=== PATIENT | female | born 1990 | race Asian ===

== ENCOUNTER → 2024-12-10 13:52 | Outpatient (CLI) | payer OTHER, SELFPAY ==
[2024-12-10 20:24] LABS: Urine N gonorrhoeae NOT DETECTED
[2024-12-10 20:25] LABS: Urine Chlamydia NOT DETECTED
== END ==
PROVIDERS: Visit Provider Student in an Organized Health Care Education/Training Program
DX: Z11.3 Encounter for screening for infections with a predominantly sexual mode of transmission (principal)
CPT/HCPCS: 87491; 87591

== ENCOUNTER → 2024-12-27 09:31 | Outpatient (CLI) | payer OTHER, SELFPAY ==
[2024-12-27 10:30] LABS: Add Manual Diff / Slide Review NO; Hematocrit 34.7 % (36-46); Hemoglobin 11.7 g/dL (12.0-16.0); Lymphocytes Absolute Auto 1400 /uL (1100-4500); Mean Corpuscular HGB Conc 33.7 % (30-36); Mean Corpuscular Hemoglobin 30.8 PG (26-34); Mean Corpuscular Volume 91.2 fL (80-100); Platelet Count 286 X10^3/uL (150-400)
[2024-12-27 10:58] LABS: Natera Collection Specimen Collected
[2024-12-27 16:15] LABS: Hepatitis B Surface Antigen NEGATIVE s/c (NEGATIVE)
[2024-12-27 16:31] LABS: HIV 1 & 2 Ab/Ag 4th Gen Combo NEGATIVE (NEGATIVE); Hep C Virus Ab w/Reflex Quant NEGATIVE s/c (NEGATIVE)
== END ==
PROVIDERS: Visit Provider Student in an Organized Health Care Education/Training Program
DX: Z34.81 Encounter for supervision of other normal pregnancy, first trimester (principal)
CPT/HCPCS: 36415; 80055; 86787; 86803; 86850; 86900; 86901; 87086; 87389

== ENCOUNTER → 2025-04-02 15:03 | Outpatient (CLI) | payer OTHER, SELFPAY ==
[2025-04-02 16:28] LABS: Hematocrit 32.5 % (36-46); Hemoglobin 11.1 g/dL (12.0-16.0)
[2025-04-02 16:57] LABS: GTT (PREG) 1 Hour PP 50gm Dose 170 mg/dL (76-139)
== END ==
PROVIDERS: Referring Provider Student in an Organized Health Care Education/Training Program; Visit Provider Student in an Organized Health Care Education/Training Program
DX: Z13.0 Encounter for screening for diseases of the blood and blood-forming organs and certain disorders involving the immune mechanism (principal); Z13.1 Encounter for screening for diabetes mellitus
CPT/HCPCS: 36415; 82950; 85014; 85018

== ENCOUNTER → 2025-04-05 09:50 | Outpatient (CLI) | payer OTHER, SELFPAY ==
[2025-04-05 11:46] LABS: Glucose Fasting Gestational 77 mg/dL (76-95)
[2025-04-05 13:10] LABS: Glucose 2 Hour Gest 177 mg/dL (76-155)
[2025-04-05 13:12] LABS: Glucose 1 Hour Gest 182 mg/dL (76-180)
[2025-04-05 13:18] LABS: Glucose Tol Interp,Gestational INTERPRETATION
[2025-04-05 13:53] LABS: Glucose 3 Hour Gest 151 mg/dL (76-140)
== END ==
PROVIDERS: Referring Provider Student in an Organized Health Care Education/Training Program; Visit Provider Student in an Organized Health Care Education/Training Program
DX: O99.810 Abnormal glucose complicating pregnancy (principal)
CPT/HCPCS: 36415; 82951; 82952

== ENCOUNTER → 2025-04-18 13:52 | Outpatient (CLI) | payer OTHER, SELFPAY ==
--- NOTE | 2025-04-18 14:02 | DIAB.GDA ---
Initial Gestational Diabetes Assessment Name: Amber Florence Date: 04/18/25 Time: 2-3p Dx: Gestational Diabetes Provider: Hang RO: 07/11/24 Weeks: 28 Amber presents for initial GDM visit. Interested in CGM. Has not yet picked up SMBG supplies. Endorses FH of T2DM with father. Has questions today specifically on how GDM will impact baby and her risk of T2DM. 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 Diet Recall: 630am: 2 eggs, 1c rice, 1c milk 7-1p: 3 Skyflake packets 3p: chicken stew, 1.5c rice 9p: beef soup, 1c rice water Anthropometrics: Ht: 61 Wt: 125# Prepregnancy wt: 151# Physical Activity: Walks most days at work and at home on treadmill x 20 min Self-Monitoring Blood Glucose: None at this time. Will trial G7 Sample Date Pre Post Pre Post Pre Post HS Diabetes Medications: none Pertinent Labs: Screen: 170mg/dl OGTT: 77, 182, 177, 151 Nutrition Rx: Carbohydrates: Meal: 45-g lunch and dinner; 30g breakfast Snack: 15-30g Nutrition Diagnosis: Altered nutrition related lab value r/t GDM dx aeb recent OGTT Predicted excessive CHO intake r/t nutrition knowledge deficit and newly dx GDM aeb diet recall Self monitoring deficit r/t no SMBG supplies and interest in CGM aeb pt report Intervention: This participant was very receptive. Provided appropriate educational handouts. Discussed the following topics: GDM pathophysiology and impact of hyperglycemia on mom and baby Risk for T2DM for mom and baby in the future Ways to reduce risk T2DM Plate Method, meal timing, carb counting, pairing macronutrients and spreading out CHO for better BG management Blood glucose goals (FBG: <95 and 1 hour <140 mg/dL or 2 hour <120mg/dl); importance of checking 4x per day (FBG and pc) Impact of macronutrients on blood glucose Recommended servings for carbohydrates at meals and snacks Brainstormed appropriate meal plan based on her food preferences CGM placement, education, resources, and precautions Role of physical activity and following provider guidelines for safety 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
== END ==
LOC: DIET 13:53
PROVIDERS: Referring Provider Student in an Organized Health Care Education/Training Program
DX: O24.419 Gestational diabetes mellitus in pregnancy, unspecified control (principal); Z3A.28 28 weeks gestation of pregnancy; Z83.3 Family history of diabetes mellitus; Z71.3 Dietary counseling and surveillance
CPT/HCPCS: 97802

== ENCOUNTER → 2025-04-24 11:31 | Outpatient (CLI) | payer OTHER, SELFPAY ==
--- NOTE | 2025-04-24 11:33 | DIAB.GDFU ---
Follow-up Gestational Diabetes Assessment Name: Amber Florence Date: 04/24/25 Time: 1135-1150a Dx: Gestational Diabetes Provider: Hang RO: 07/11/24 Weeks: 28-29 Amber presents for GDM visit. Ordered Stelo because she wants to continue with CGM vs fingersticks. Unclear what her FBG are due to variability in CGM and no labels for FBG currently. Rice usually 1.5c. Very hungry at lunch time. having a hard time reducing rice portions. Open to moving milk and to increasing activity after meals. Has not yet picked up SMBG supplies. Diet Recall: 630am: 2 eggs, 1c rice, 1c milk OR two HB eggs 7-1p: 3 Skyflake packets--- not discussed 2-3p: chicken stew, 1.5c rice 9p: beef soup, 1-1.5c rice water Anthropometrics: Ht: 61 Wt: 151# 03/2025 Prepregnancy wt: 125# Physical Activity: Walks most days at work and at home on treadmill x 20 min Self-Monitoring Blood Glucose: Using CGM. Elevations usually after breakfast and dinner 140-191mg/dl, with most elevations 140-165mg/dl. TIR: 12% above 140mg/dl 87% 70-140mg/dl 1% <70mg/dl 0% <55mg/dl avmg/dl std dev: 25mg/dl variance: 22.2% Date Pre Post Pre Post Pre Post HS Diabetes Medications: none Pertinent Labs: Screen: 170mg/dl OGTT: 77, 182, 177, 151 Nutrition Rx: Carbohydrates: Meal: 45-g lunch and dinner; 30g breakfast Snack: 15-30g Nutrition Diagnosis: Altered nutrition related lab value r/t GDM dx aeb recent OGTT Predicted excessive CHO intake r/t nutrition knowledge deficit and newly dx GDM aeb diet recall - in progress Self monitoring deficit r/t no SMBG supplies and interest in CGM aeb pt report- improved Intervention: This participant was very receptive. Provided appropriate educational handouts. 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
== END ==
LOC: DIET 11:32
PROVIDERS: Referring Provider Obstetrics & Gynecology
DX: O24.419 Gestational diabetes mellitus in pregnancy, unspecified control (principal); Z3A.28 28 weeks gestation of pregnancy; Z71.3 Dietary counseling and surveillance
CPT/HCPCS: 97803

== ENCOUNTER → 2025-04-30 12:48 | Outpatient (CLI) | payer OTHER, SELFPAY ==
--- NOTE | 2025-04-30 12:49 | DI.US.S_ITS ---
PROCEDURE: US OB FOLLOW UP
== END ==
PROVIDERS: Referring Provider Obstetrics & Gynecology; Visit Provider Obstetrics & Gynecology
DX: O36.5930 Maternal care for other known or suspected poor fetal growth, third trimester, not applicable or unspecified (principal); Z3A.29 29 weeks gestation of pregnancy
CPT/HCPCS: 76816; 97803

== ENCOUNTER → 2025-04-30 12:49 | Outpatient (CLI) | payer OTHER, SELFPAY ==
--- NOTE | 2025-05-01 12:56 | DIAB.GDFU ---
Addendum entered by Felicia Lazaro 05/09/25 16:19: 05/09/25 phone call: Most FBG in goal, with a couple elevations in the 95-99mg/dl range. Many postprandial numbers just over 140mg/dl. Has not tried brown rice or quinoa. Eating >1c oats with sugar for breakfast. Encouraged switch to higher fiber grain at lunch and dinner and to reduce oats to 1c, d/c sugar, add a few berries and protein. She agreed. if Bg continue to be elevated, will reach out to OB for plan. RD f/u next week. Original Note: Follow-up Gestational Diabetes Assessment Name: Amber Florence Date: 04/30/25 Time: 2-235p Dx: Gestational Diabetes Provider: Hang RO: 07/11/24 Weeks: 29-30 Amber presents for GDM visit. Ordered Stelo because she wants to continue with CGM vs fingersticks. Started documenting FBG, which have improved over the last couple days, though postprandial numbers still elevated. She reports she does not always trust the CGM and wants to fingerstick to confirm. Had issues with receiving a glucose monitor that was being discontinued, so did not have supplies. Bought a CGM online instead. Has reduced rice portions to 2/3-3/4c per meal. Tearful today with continued elevations despite changes. Trying to add more protein. Has questions about medication management in . Diet Recall: 630am: 2-3 eggs, 2/3-3/4c rice 1140a; 2/3-3/4c rice with meat AM or PM snack: crackers or melon or lumpia x3 7pm: 2/3-3/4c rice , meat and +/- veg water Anthropometrics: Ht: 61 Wt: 151# 03/2025 Prepregnancy wt: 125# Physical Activity: Walking or dancing after lunch and dinner. Self-Monitoring Blood Glucose: Using CGM and noting meals. Numbers below are gleaned from FBG and highest, usually 1 hour, peak from CGM data. FBG have improved, though postprandial still elevated for most meals. Will try higher fiber complex CHO at meals to see if these numbers will come down. 4/7 elevated FBG, 5/6 elevated pc breakfast, 5/7 elevated pc lunch, and 5/6 elevated pc dinner. Date Pre Post Pre Post Pre Post HS 04/24 97 157 202 201 04/25 102 131 128 191 04/26 101 178 159 164 04/27 88 194 125 189 04/28 96 171 113 04/29 85 167 163 164 04/30 85 157 170 TIR: 12% above 140mg/dl 87% 70-140mg/dl 1% <70mg/dl 0% <55mg/dl avmg/dl std dev: 25mg/dl variance: 23% Last TIR: 12% above 140mg/dl 87% 70-140mg/dl 1% <70mg/dl 0% <55mg/dl avmg/dl std dev: 25mg/dl variance: 22.2% Diabetes Medications: none Pertinent Labs: Screen: 170mg/dl OGTT: 77, 182, 177, 151 Nutrition Rx: Carbohydrates: Meal: 45-g lunch and dinner; 30g breakfast Snack: 15-30g Nutrition Diagnosis: Altered nutrition related lab value r/t GDM dx aeb recent OGTT Predicted excessive CHO intake r/t nutrition knowledge deficit and newly dx GDM aeb diet recall - improved Predicted inadequate fiber intake r/t simple CHO choices at meals aeb pt report- new Intervention: This participant was very receptive. Provided appropriate educational handouts. Discussed the following topics: Encouraged higher fiber CHO options, ie brown rice and quinoa at meals. 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 Felicia Lazaro RDN, [facility] Certified Diabetes Care and Blender Snuff T: [phone] F: [phone] [email or web address] Thank you for this referral
== END ==
PROVIDERS: Referring Provider Student in an Organized Health Care Education/Training Program
DX: O24.419 Gestational diabetes mellitus in pregnancy, unspecified control (principal); Z3A.29 29 weeks gestation of pregnancy; Z71.3 Dietary counseling and surveillance
CPT/HCPCS: 97803

== ENCOUNTER → 2025-05-14 15:04 | Outpatient (CLI) | payer OTHER, SELFPAY ==
--- NOTE | 2025-05-17 08:27 | DIAB.GDFU ---
Follow-up Gestational Diabetes Assessment Name: Amber Florence Date: 05/14/25 Time: 3-330 Dx: Gestational Diabetes Provider: Hang RO: 07/11/24 Weeks: 32 Amber presents for GDM visit virtually using [facility]. Continues using Stelo OTC CGM, though still doing finger sticks frequently to confirm. Would rec low threshold for medication management given difficulty with managing postprandial numbers. Reduced movement after lunch per report. Did not switch out white rice for higher fiber grain, as discussed last visit. As a result lunch reading are consistently above 140mg/dl. has reduced oatmeal portions in the morning, brining more pc breakfast reading in goal. Though still having some higher CHO options causing elevations at that meal as well. Diet Recall: Breajfast: 2-3 eggs 1 toast and 1/2c milk OR oats alone OR steamed bun Lunch: 1c rice with pro and veggies AM or PM snack: crackers (<20g) Dinner: chicken alone Anthropometrics: Ht: 61 Wt: 156# 04/2025 151# 03/2025 Prepregnancy wt: 125# Physical Activity: Walking or dancing after dinner. Less after lunch. Self-Monitoring Blood Glucose: Using CGM. Also using some fingersticks to confirm. checking FBG and 1 hour with goal <140mg/dl. Improved FBG with 2/7 elevated. Improved pc breakfast with 3/7 elevated. Excessive elevated lunch with 5/6 elevated. dinner pc 1/5 elevated. Today: Date Pre Post Pre Post Pre Post HS 05/08 95 121 145 161 05/09 96 149 152 87 05/10 87 87 158 130 05/11 86 158 146 101 05/12 88 128 146 97 05/13 94 172 121 x 05/14 77 112 Last Visit Date Pre Post Pre Post Pre Post HS 04/24 97 157 202 201 04/25 102 131 128 191 04/26 101 178 159 164 04/27 88 194 125 189 04/28 96 171 113 04/29 85 167 163 164 04/30 85 157 170 Diabetes Medications: none Pertinent Labs: Screen: 170mg/dl OGTT: 77, 182, 177, 151 Nutrition Rx: Carbohydrates: Meal: 45-g lunch and dinner; 30g breakfast Snack: 15-30g Nutrition Diagnosis: Altered nutrition related lab value r/t GDM dx aeb recent OGTT Predicted excessive CHO intake r/t nutrition knowledge deficit and newly dx GDM aeb diet recall - improved/in progress Predicted inadequate fiber intake r/t simple CHO choices at meals aeb pt report- continued Intervention: This participant was very receptive. Provided appropriate educational handouts. Discussed the following topics: Encouraged higher fiber CHO options Encouraged movement after lunch and dinner Discussed breakfast recs Recommended servings for carbohydrates at meals and snacks Answered questions regarding DM meds in Goals: Start finger sticks- met Try brown rice or quinoa- not met Reduce CHO at lunch- new Stick to breakfast that works- new move after lunch- new Follow-up: DRAKE BEDOYA follow-up in one week remotely and 2 weeks in person. Felicia Lazaro RDN, [facility] Certified Diabetes Care and Sample Tester Grinder T: [phone] F: [phone] [email or web address] Thank you for this referral
== END ==
LOC: DIET 15:04
PROVIDERS: Referring Provider Student in an Organized Health Care Education/Training Program
DX: O24.419 Gestational diabetes mellitus in pregnancy, unspecified control (principal); Z3A.32 32 weeks gestation of pregnancy; Z71.3 Dietary counseling and surveillance
CPT/HCPCS: 97803

== ENCOUNTER → 2025-05-28 16:06 | Outpatient (CLI) | payer OTHER, SELFPAY ==
--- NOTE | 2025-05-28 16:07 | DIAB.GDFU ---
Follow-up Gestational Diabetes Assessment Name: Amber Florence Date: 05/28/25 Time: 410-440 Dx: Gestational Diabetes Provider: Hang RO: 07/11/24 Weeks: 33-34 Amber presents for GDM visit virtually using [facility]. Continues using Stelo OTC CGM. Still doing finger sticks frequently to confirm, though ran out of strips this week. uses FreeStyle Lite and ran out of strips, expensive to replace. Waiting on insurance for new batch. States she has cut out most CHO, apparent in diet recall. Hungry at lunch. Open to insulin therapy. RD will message OB. Diet Recall: Breakfast: 2-3 eggs Lunch: chicken alone OR pork or chicken stew AM or PM snack: crackers (<20g) Dinner: low CHO wrap with veggies and protein Anthropometrics: Ht: 61 Wt: 156# 04/2025 151# 03/2025 Prepregnancy wt: 125# Physical Activity: back pain barrier. More stretching less walking or dance for exercise. Self-Monitoring Blood Glucose: Using CGM. Also using some fingersticks to confirm. checking FBG and 1 hour with goal <140mg/dl. most are within 10 points of fingerstick. FBG with 4/7 elevated. breakfast with 6/7 elevated. Elevated lunch with 3/6 elevated. dinner pc 5/6 elevated. When pc readings are in goal, usually skipping CHO portions all together. Today: Date Pre Post Pre Post Pre Post HS 05/22 80 119 150 133 05/23 101 157 141 160 05/24 102 172 147 153 05/25 109 180 137 163 05/26 95 159 161 05/27 98 157 108 166 05/28 93 173 104 Last Visit Date Pre Post Pre Post Pre Post HS 05/08 95 121 145 161 05/09 96 149 152 87 05/10 87 87 158 130 05/11 86 158 146 101 05/12 88 128 146 97 05/13 94 172 121 x 05/14 77 112 Diabetes Medications: none Pertinent Labs: Screen: 170mg/dl OGTT: 77, 182, 177, 151 Nutrition Rx: Carbohydrates: Meal: 45-g lunch and dinner; 30g breakfast Snack: 15-30g Nutrition Diagnosis: Altered nutrition related lab value r/t GDM dx aeb recent OGTT Inadequate CHo intake for r/t hyperglycemia management aeb pt report and diet recall Intervention: This participant was very receptive. Provided appropriate educational handouts. Discussed the following topics: Reviewed importance of balanced nutrients in Reviewed recent BG and impact of CHO, despite even small portions Discussed insulin therapy and technique for injection Provided handouts: sharps, insulin injection, hypoglycemia tx and s/s Goals: Reduce CHO at lunch- met Stick to breakfast that works- met move after lunch- not met bilingual patient support caseworker insulin if rx'd- new try adding back CHO if insulin started- new Follow-up: DRAKE BEDOYA follow-up in one week remotely and 2 weeks in person. Felicia Lazaro RDN, [facility] Certified Diabetes Care and Human Performance Technologist T: [phone] F: [phone] [email or web address] Thank you for this referral
== END ==
LOC: DIET 16:06
PROVIDERS: Referring Provider Student in an Organized Health Care Education/Training Program
DX: O24.419 Gestational diabetes mellitus in pregnancy, unspecified control (principal); Z3A.33 33 weeks gestation of pregnancy; Z71.3 Dietary counseling and surveillance
CPT/HCPCS: 97803

== ENCOUNTER → 2025-06-13 15:59 | Outpatient (CLI) | payer OTHER, SELFPAY ==
--- NOTE | 2025-06-13 16:03 | DIAB.GDFU ---
Follow-up Gestational Diabetes Assessment Name: Amber Florence Date: 06/13/25 Time: 4-440p Dx: Gestational Diabetes rovider: Jadon/Vishal RO: 07/11/24 Weeks: 36 Amber presents for GDM visit virtually using [facility]. Continues using Stelo OTC CGM. Still doing finger sticks frequently to confirm. Was rx'd insulin but had some access issues. Just started full regimen last night, NPH and prandial. BG already improved and allowing her to have some carb intake. Does seem likely that she may need 12-15u per meal, current dosing at 8-10u. RD to message OB group about potential for titration at meals. Aiming for 1/2-1c rice at meals. Breakfast with low CHO tortilla and half cup of milk rendered 142mg/dl with 8u prandial insulin. Anthropometrics: Ht: 61 Wt: 159# 05/2025 156# 04/2025 151# 03/2025 Prepregnancy wt: 125# Physical Activity: back pain barrier. More stretching less walking or dance for exercise. Self-Monitoring Blood Glucose: Overall improved BG, especially FBG. Using CGM. Also using some fingersticks to confirm. checking FBG and 1 hour with goal <140mg/dl. She is seeing some discrepancy in CGm vs meter results. FBG with 1/7 elevated. breakfast with 4/6 elevated. Elevated lunch with 7/7 elevated. dinner pc 2/7 elevated. When pc readings are in goal, usually skipping CHO portions all together or using insulin, which she started at meals on 06/10 at lunch. Today: Date Pre Post Pre Post Pre Post HS 06/07 93 161 168 113 06/08 100 150 140 06/09 88 139 153 123 06/10 93 122 143 146 06/11 81 163 150 147 06/12 81 168 155 136 06/23 85 142 152 Last Visit Date Pre Post Pre Post Pre Post HS 05/22 80 119 150 133 05/23 101 157 141 160 05/24 102 172 147 153 05/25 109 180 137 163 05/26 95 159 161 05/27 98 157 108 166 05/28 93 173 104 Diabetes Medications: 10u NPH HS 8-10u prandial lispro Pertinent Labs: Screen: 170mg/dl OGTT: 77, 182, 177, 151 Nutrition Rx: Carbohydrates: Meal: 45-g lunch and dinner; 30g breakfast Snack: 15-30g Nutrition Diagnosis: Altered nutrition related lab value r/t GDM dx aeb recent OGTT Inadequate CHo intake for r/t hyperglycemia management aeb pt report and diet recall - improved/in progress Intervention: This participant was very receptive. Provided appropriate educational handouts. Discussed the following topics: Reviewed importance of balanced nutrients in Reviewed recent BG and impact of CHO, despite even small portions Reviewed hypoglycemia s/s and tx Recent blood sugar results and impact of food and hormones Review of macronutrient recommendations during Benefits, resources, and nutrition for recommendations for nutrition and physical activity recommendations for T2DM risk reduction? - OGTT at 6-12 weeks - Checking blood sugars twice per week (goal: fasting <100 mg/dL and 2 hour pc <140 mg/dL) until 6 week check-up - HgA1c q 1-3 years. Goals: supervisor final insulin if rx'd- met try adding back CHO if insulin started- met Aim for 30-45g CHO at meals- new Practice rule of 15 for lows prn- new May need to consider 12-15u at meals for prandial insulin- new Follow-up: DRAKE BEDOYA follow-up in one week remotely. RD to message OB group regarding prandial insulin recs. Felicia Lazaro RDN, [facility] Certified Diabetes Care and Cotton Dispatcher T: [phone] F: [phone] [email or web address] Thank you for this referral
== END ==
LOC: DIET 16:00
PROVIDERS: Referring Provider Student in an Organized Health Care Education/Training Program
DX: O24.414 Gestational diabetes mellitus in pregnancy, insulin controlled (principal); Z3A.36 36 weeks gestation of pregnancy; Z71.3 Dietary counseling and surveillance
CPT/HCPCS: 97803

== ENCOUNTER → 2025-06-17 12:04 | Outpatient (CLI) | payer OTHER, SELFPAY ==
[2025-06-18 13:51] LABS: Strep Grp B PCR NEG for Grp B Strep
== END ==
PROVIDERS: Visit Provider Student in an Organized Health Care Education/Training Program
DX: Z34.03 Encounter for supervision of normal first pregnancy, third trimester (principal)
CPT/HCPCS: 87653

== ENCOUNTER 2025-06-18 10:48 | Outpatient (CLI) | payer OTHER, SELFPAY ==
--- OUTSIDE RECORDS SUMMARY | 2025-06-18 12:56 | XMS_ITS | Clinical Summary ---
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 Active MAGNESIUM OR Take by mouth. Active Ovulation Prediction Test kitIndications:Irre gular intermenstrual bleeding Test with second void of morning starting cycle day 10 (cycle day 1 is full flow) 3 kit 3 5 Active clomiPHENE 50 MG tabletIndications:E ncounter for artificial insemination,Female infertility unexplained after evaluation Take 1 tablet (50 mg) by mouth daily. On cycle days 3-7 15 tablet 1 5 Active choriogonadotropin lalo (Ovidrel) 250 MCG/0.5ML prefilled syringeIndications: Irregular intermenstrual bleeding Inject 0.5 mL (250 mcg) under the skin once as needed. 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 infertility; [facility] [place] Lab Results Component Value Date Anti-Mullerian Hormone 3.90 03/20/2024 AFC: 19 Menstrual Status Menses occur every: month, with 1 week premenstrual spotting Uterine Evaluation Multiple uterine fibroids, none impinging Tubal Evaluation Normal HSG Sperm Normal SA Genetic Testing deferred Labs Lab Results Component Value Date Anti-Mullerian Hormone 3.90 03/20/2024 ABO/Rh AB POSITIVE 03/20/2024 Vit D (25_Hydroxy) Total 24.7 03/20/2024 Thyroid Stimulating Hormone 1.910 03/20/2024 Rubella Immune Status Interp 03/20/2024 Evidence of prior infection or immunization with Rubella. Varicella Zoster Immune Status Interp 03/20/2024 Evidence of past infection with Varicella zoster virus or immunization with varicella zoster vaccine. N.Gonorrhoeae(GC) Nucleic Acid Negative 04/20/2024 Chlam Trachomatis Nucleic Acid Negative 04/20/2024 Irregular intermenstrual bleeding 07/16/2024 Intramural and subserous leiomyoma of uterus Family History Medical History Relation Comments Diabetes Father Heart Disease Mother Relation Status Comments Father Mother Social History Tobacco Use Types Packs/Day Years Used Date Smoking Tobacco: Never Smokeless Tobacco: Never Tobacco Cessation:Counseling Given: Not Answered Alcohol Use Standard Drinks/Week Comments Not Currently 0 (1 standard drink = 0.6 oz pur e alcohol) Decades ago Comments No Sex and Gender Information Value Date Recorded Sex Assigned at Female 12/26/2023 8:29 AM PDT Legal Sex Female 2:07 PM PDT Gender Identity Female 12/26/2023 8:29 AM PDT Sexual Orientation Straight 12/26/2023 8: 30 AM PDT Last Filed Vital Signs Vital Sign Reading Time Taken Comments Blood Pressure 110/72 03/20/2024 9:03 AM PDT Pulse 74 03/20/2024 9:03 AM PDT Temperature - - Respiratory Rate - - Oxygen Saturation 99% 03/20/2024 9:03 AM PDT Inhaled Oxygen Concentration - - Weight 56.4 kg (124 lb 6.4 oz) 03/20/2024 9:03 A M PDT Height 157 cm (5' 1.81) 03/20/2024 9:03 AM PDT Body Mass Index 22.89 03/20/2024 9:03 AM PDT Plan of Treatment Health Maintenance Due Date Last Done Comments Hepatitis C Screening 1992 Depression Screening (PHQ-2) 2004 HIV Screening 2007 Cervical Cancer Screening 2017 HPV Self Collect 2017 HPV 2017 Pap 2017 COVID-19 Vaccine ( season) 2025 02/12/2022, 12/16/2020, 11/15/2020 Influenza Vaccine (#1) 2025 , 2023, 06/11/2022, Additional history exists DTaP, Tdap and Td Vaccines (2 - Td or Tdap) 12/18/2025 12/19/2015 Hepatitis A Vaccine Aged Out 06/23/2016, 01/23/2016, 12/19/2015 No longer eligible based on patient's age to complete this topic Hepatitis B Vaccine Completed 06/23/2016, 01/23/2016, 12/19/2015 HPV Vaccine Completed 05/29/2020, 05/28, 03/30/2016 Meningococcal B Vaccine Aged Out No l onger eligible based on patient's age to complete this topic Pneumococcal Vaccine: Pediatrics (0-5 years) and At-Risk Patients (6-49 years) Aged Out No longer eligible based on patient's age to complete this topic [place] [address] 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
== END 2025-06-18 11:25 | disposition home or self-care (01) ==
LOC: LABOR 11:37 → OB 12:54
PROVIDERS: Referring Provider Student in an Organized Health Care Education/Training Program; Visit Provider Student in an Organized Health Care Education/Training Program
DX: O24.913 Unspecified diabetes mellitus in pregnancy, third trimester (principal); Z3A.36 36 weeks gestation of pregnancy; Z79.4 Long term (current) use of insulin
CPT/HCPCS: 59025; G0378; G0379

== ENCOUNTER 2025-06-24 12:02 | Outpatient (CLI) | payer OTHER, SELFPAY ==
--- NOTE | 2025-06-24 15:59 | PM.OBTRLD ---
Visit Information Visit Information Date of evaluation: 06/24/25 Primary OB Provider: Leigha Diop Reason for Evaluation: Yes non-stress test [facility] Medical History (Updated 06/03/25 @ 15:06 by Leigha Diop DO) Infertility Syncopal episodes Ankle fracture, right (~2018) Measles (~1998) Chicken pox (~2006) Surgical History (Updated 11/26/24 @ 08:35 by Yuridia Galindo, RN) [place] teeth removed (12/29/15) Family History (Updated 11/26/24 @ 08:40 by Yuridia Galindo RN) Mother Rheumatic heart disease Osteoporosis Father Diabetes mellitus Chronic renal failure Hypertension Heart disease Grandfather Heart disease Aunt Dementia Social History marital status: number of children: 0 household members: spouse and family lives independently: Yes caregiver/support person: No housing: house pets and animals: Yes (dog) education level: college occupational status: employed current occupational exposures/hazards: No (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 ) sotero/synagogue: [employer] special sotero needs: No travel history: recent seatbelt use: always water heater temp set < 120 deg: Yes working smoke detector in home: Yes fire extinguisher in home: Yes carbon monox detector in home: Yes firearms in home: No do you feel safe at home: Yes second hand exposure: Yes ( vapes) alcohol intake: never substance use type: does not use during the past year weight has: remained stable well-balanced diet: rarely or never daily servings fruits/ve-1 caffeine: No Type(s) of exercise: walking Evaluation Evaluation Baseline heart rate: 130 Variability: Moderate (6-25) monitor accelerations: Present Monitor Decelerations: Absent Category of Tracing: Reactive Diagnosis, Plan/Disposition Final Diagnosis (1) GDM, class A2: Status: Acute Plan/Disposition OB Disposition: home
== END 2025-06-24 12:52 | disposition home or self-care (01) ==
LOC: LABOR 12:46 → OB 12:55
PROVIDERS: Referring Provider Student in an Organized Health Care Education/Training Program; Visit Provider Student in an Organized Health Care Education/Training Program
DX: Z03.71 Encounter for suspected problem with amniotic cavity and membrane ruled out (principal); O24.414 Gestational diabetes mellitus in pregnancy, insulin controlled; Z3A.37 37 weeks gestation of pregnancy
CPT/HCPCS: 59025; 84112; G0378; G0379